=== PATIENT | male | born 1950 | race Caucasian/White ===

== ENCOUNTER 2022-07-28 08:05 | Emergency (ER) | payer MEDICARE, OTHER ==
[~2022-07-28] VITALS: Ht 182.9 cm; Wt 86.1 kg
[2022-07-28 08:15] VITALS: BP 164/91
[2022-07-28] MEDS ORDERED: LIPITOR10 M1 PO (08:21)
[2022-07-28] MEDS ORDERED: LUPRON DEPOT22.5 MG IM (08:21)
[2022-07-28 08:30] VITALS: BP 168/89
[2022-07-28 09:00] VITALS: BP 147/89
[2022-07-28] MEDS ORDERED: NAPROXEN500 MG PO ×2 (09:19→09:23)
[2022-07-28] MEDS ORDERED: TRAMADOL HYDROC50 M1 PO ×2 (09:19→09:23)
[2022-07-28 09:30] VITALS: BP 138/85
[2022-07-28 09:48] VITALS: BP 138/85
== END 2022-07-28 09:59 | disposition home or self-care (01) ==
LOC: ED 08:05
PROC: 0HQDXZZ Repair Right Lower Arm Skin, External Approach (ICD-10-PCS; principal; 2022-07-28)
DX: S51.011A Laceration without foreign body of right elbow, initial encounter (principal); S81.811A Laceration without foreign body, right lower leg, initial encounter; S70.01XA Contusion of right hip, initial encounter; W11.XXXA Fall on and from ladder, initial encounter; Y92.009 Unspecified place in unspecified non-institutional (private) residence as the place of occurrence of the external cause

== ENCOUNTER 2022-08-08 09:50 | Emergency (ER) | payer MEDICARE, OTHER ==
[~2022-08-08] VITALS: Ht 182.9 cm; Wt 84.1 kg
[~2022-08-08 09:50] MED LIST: LIPITOR10 M1 PO; LUPRON DEPOT22.5 MG IM; NAPROXEN500 MG PO; TRAMADOL HYDROC50 M1 PO
[2022-08-08 09:54] VITALS: BP 164/80
[2022-08-08 10:01] VITALS: BP 168/86
[2022-08-08] MEDS ORDERED: DOXYCYCLINE100 MG PO (10:11)
[2022-08-08 10:21] VITALS: BP 164/80
== END 2022-08-08 10:26 | disposition home or self-care (01) ==
LOC: ED 09:50
DX: S51.011D Laceration without foreign body of right elbow, subsequent encounter (principal); X58.XXXD Exposure to other specified factors, subsequent encounter